=== PATIENT | male | born 1970 | race Caucasian/White ===

== ENCOUNTER → 2024-05-18 06:15 | Day surgery (SDC) | payer BC, SELFPAY | LOC: GI 06:15 | PROVIDERS: ATTENDING PHYSICIAN Internal Medicine Gastroenterology | DX: Z12.11 Encounter for screening for malignant neoplasm of colon (principal); K64.8 Other hemorrhoids; K57.30 Diverticulosis of large intestine without perforation or abscess without bleeding; R12 Heartburn; K44.9 Diaphragmatic hernia without obstruction or gangrene; K22.89 Other specified disease of esophagus; K31.7 Polyp of stomach and duodenum; D12.3 Benign neoplasm of transverse colon | CPT/HCPCS: 45385; 43239; 88305 ==